=== PATIENT | male | born 1995 | race Caucasian/White ===

== ENCOUNTER 2021-10-04 21:52 | Emergency (ER) | payer SELFPAY ==
[2021-10-04 22:58] LABS: BASOPHIL 0.4 % (0-2); EOSINOPHIL 0.1 % (0-5); HCT 48.8 % (42.0-52.0); HGB 16.5 g/dl (13.2-18.0); LYMPHOCYTE 12.7 % (15-48); MCH 29.2 pg (25.0-31.0); MCHC 33.8 g/dL (32.0-36.0); MCV 86.2 fL (78.0-100.0); MONOCYTE 6.9 % (0-12); MPV 11.3 fL (6.0-9.5); NEUTROPHIL 79.7 % (41-80); NRBC 0; PLT 197 K/uL (150-400); RBC 5.66 M/uL (4.70-6.00); RDW 11.8 % (11.5-14.0)
[2021-10-04 23:23] LABS: BUN/CREAT RATIO (CALC) 11.1 RATIO; CREATININE 0.81 mg/dL (0.67-1.17); POTASSIUM 4.1 mmol/L (3.5-5.1)
[2021-10-04 23:32] LABS: INFLUENZA A NAA NEGATIVE (NEGATIVE)
[2021-10-04 23:34] LABS: CORONAVIRUS 2019 SARS-COV-2 POSITIVE (NEGATIVE)
[2021-10-04 23:43] LABS: BILIRUBIN NEGATIVE (NEGATIVE); BLOOD NEGATIVE Ery/uL (NEGATIVE); CLARITY CLEAR (CLEAR); COLOR YELLOW (YELLOW); GLUCOSE (U) NORMAL (NORMAL); LEUKOCYTES NEGATIVE Leu/uL (NEGATIVE); NITRITE NEGATIVE (NEGATIVE); PROTEIN NEGATIVE (NEGATIVE); SPECIFIC GRAVITY 1.025 (1.001-1.030); UROBILINOGEN 0.2 mg/dL (0.2-1.0); pH 5.5 (5.0-9.0)
== END 2021-10-05 00:05 | disposition home or self-care (01) ==
LOC: FER 21:52
PROVIDERS: Nurse Practitioner Family
DX: U07.1 COVID-19 (principal); M54.50 Low back pain, unspecified
CPT/HCPCS: 36415; 80048; 81003; 85025; 99283; U0002